=== PATIENT | female | born 1980 | race Two or more races ===

== ENCOUNTER 2017-09-19 11:04 | Emergency (ER) | payer OTHER ==
[~2017-09-19] VITALS: Ht 154.9 cm; Wt 81.6 kg
[2017-09-19 11:14] VITALS: BP 112/77
--- NOTE | 2017-09-19 12:09 | Emergency Room Report ---
History of Present Illness General Chief Complaint: Allergic Reaction Source: Patient Present Illness HPI Patient at work and broke out in rash. Itching and red. Anterior chest and under breasts. Never with allergy before. No SOB, throat swelling, nausea, wheezing. Given 2 benadryl and the rash has improved. No unusual foods, new soaps, clothes. She decorates cakes. She states she ate some almond extract, but has done this in the past without problems. Not . No increased stress. Allergies: Coded Allergies: No Known Allergies (Unverified , 09/19/17) Patient History Past Medical History: see triage record Social History: Denies: smoking Social History Narrative decorates cakes at [employer] Last Menstrual Period: 09/12/2017 Now: No Reviewed Nursing Documentation: PMH: Agreed, PSxH: Agreed Nursing Documentation-PMH Past Medical History: No Stated History Review of Systems All Other Systems: negative except mentioned in HPI Physical Exam Vital Signs Date Time Temp Pulse Resp B/P (MAP) Pulse Ox O2 Delivery O2 Flow Rate FiO2 09/19/17 11:14 97.8 72 16 112/77 100 Room Air 97.9 Sp02 EP Interpretation: reviewed, normal General Appearance: well appearing, no apparent distress, GCS 15 Head: normocephalic Eyes: bilateral eye normal inspection, bilateral eye PERRL ENT: normal pharynx, no angioedema, moist mucus membranes Neck: supple Respiratory: lungs clear, normal breath sounds Cardiovascular #1: regular rate, rhythm Cardiovascular #2: 2+ radial (R) Gastrointestinal: normal inspection, normal bowel sounds, non tender, no mass, non-distended Musculoskeletal: back normal, gait/station normal, normal range of motion Neurologic: alert, oriented x3, grossly normal Psychiatric: mood/affect normal Skin: warm/dry, other - wheel flare reaction, upper trunk Medical Decision Making Diagnostic Impression: Primary Impression: Allergic reaction Qualified Codes: T78.40XA - Allergy, unspecified, initial encounter ER Course Patient with rash, now sl better with benadryl. DDx; food allergy, intertrigo, hives amongst others . No evidence of anaphylaxis. As improved with benadryl, will treat with prednisone. Improved with treatment. Patient stable for outpatient observation and treatment. Last Vital Signs Date Time Temp Pulse Resp B/P (MAP) Pulse Ox O2 Delivery O2 Flow Rate FiO2 09/19/17 12:46 98.0 72 16 104/61 98 09/19/17 11:14 Room Air Status: improved Disposition: HOME, SELF-CARE Condition: Improved Scripts Diphenhydramine Hcl* (BENADRYL*) 25 Mg Capsule 25 MG ORAL Q6H Y for Itching, #16 CAP Prov: Raudel Lanier M.D. 09/19/17 Prednisone* (PREDNISONE*) 20 Mg Tablet 40 MG ORAL DAILY, #10 TAB Prov: Raudel Lanier M.D. 09/19/17 Referrals: NOT CHOSEN YOLIS/,REFERRING (PCP) Raudel Lanier M.D. Sep 19, 2017 12:09
[2017-09-19] MEDS ORDERED: BENADRYL25 MG ORAL (12:10)
[2017-09-19] MEDS ORDERED: PREDNISONE20 MG ORAL (12:10)
[2017-09-19 12:46] VITALS: BP 104/61
== END 2017-09-19 12:48 | disposition home or self-care (01) ==
LOC: EMR 11:55
DX: T78.40XA Allergy, unspecified, initial encounter (principal); X58.XXXA Exposure to other specified factors, initial encounter; L29.9 Pruritus, unspecified
CPT/HCPCS: 99283; J7512